=== PATIENT | female | born 1970 | race African-American/Black ===

== ENCOUNTER 2020-09-30 21:05 | Emergency (ER) | payer SELFPAY ==
[~2020-09-30] VITALS: Ht 172.7 cm; Wt 90.7 kg
[2020-09-30] MEDS ORDERED: KETOROLAC TROMETH 60MG/2ML VIAL IM ONE (23:45)
[2020-09-30] MEDS ORDERED: HYDROcodone-ACET 5/325MG TAB PO ONE (23:45)
[2020-10-01] VITALS: BP 140/73
== END 2020-10-01 03:00 | disposition home or self-care (01) ==
LOC: ER 21:09
DX: S32.029A Unspecified fracture of second lumbar vertebra, initial encounter for closed fracture (principal); S32.039A Unspecified fracture of third lumbar vertebra, initial encounter for closed fracture; W01.0XXA Fall on same level from slipping, tripping and stumbling without subsequent striking against object, initial encounter; Y93.89 Activity, other specified; Y92.89 Other specified places as the place of occurrence of the external cause; Y99.8 Other external cause status
CPT/HCPCS: 71045; 72125; 72128; 72131; 96372; 99285; J1885

== ENCOUNTER 2021-07-08 19:27 | Emergency (ER) | payer SELFPAY ==
[~2021-07-08] VITALS: Ht 175.3 cm; Wt 90.7 kg
[2021-07-09 03:25] LABS: Calcium 9.2 mg/dL (8.5-10.1); Potassium 3.8 mmol/L (3.5-5.1)
[2021-07-09 03:27] LABS: BUN/Creatinine Ratio 8.5
[2021-07-09 03:40] LABS: Basophils # (auto) 0.1 10 ^3/uL (0-0.2); Eosinophils # (auto) 0.2 10 ^3/uL (0-0.8); Hemoglobin 11.4 g/dL (12.2-16.2); Mean Corpuscular Hemoglobin 26.2 pg (28.0-32.0); Monocytes # (auto) 0.5 10 ^3/uL (0-1.3); Neutrophils # (auto) 4.5 10 ^3/uL (1.6-8.6); White Blood Cell 7.8 10^3/uL (4.4-10.8)
[2021-07-09 03:42] LABS: Basophils % (auto) 0.7 % (0.0-2.0); Eosinophils % (auto) 3.1 % (0.0-7.0); Hematocrit 35.4 % (36.0-46.0); Lymphocytes # (auto) 2.4 10 ^3/uL (0.4-5.4); Mean Corpuscular Hgb Conc. 32.1 g/dL (32.0-36.0); Mean Corpuscular Volume 81.7 fL (80.0-100.0); Neutrophils % (auto) 58.2 % (37.0-80.0); Red Blood Cells 4.33 10^6/uL (4.0-5.20); Red Cell Distribution Width 15.2 % (11.8-14.3)
[2021-07-09] MEDS ORDERED: IOHEXOL 350 MG/ML 100ML IJ ONE (04:04)
[2021-07-09 04:23] VITALS: BP 119/69
== END 2021-07-09 07:52 | disposition home or self-care (01) ==
LOC: ER 19:29
DX: R07.89 Other chest pain (principal)
CPT/HCPCS: 36415; 71045; 71275; 80048; 83605; 85025; 85379; 87040; 99285; Q9967

== ENCOUNTER 2022-05-06 14:49 | Emergency (ER) | payer SELFPAY ==
[~2022-05-06] VITALS: Ht 172.7 cm; Wt 90.9 kg
[2022-05-06 15:00] VITALS: BP 131/71
[2022-05-06 16:28] LABS: Basophils # (auto) 0.1 10 ^3/uL (0-0.2); Eosinophils # (auto) 0.2 10 ^3/uL (0-0.8); Red Blood Cells 3.98 10^6/uL (4.0-5.20)
[2022-05-06 16:30] LABS: Basophils % (auto) 0.9 % (0.0-2.0); Eosinophils % (auto) 2.1 % (0.0-7.0); Hematocrit 32.2 % (36.0-46.0); Hemoglobin 10.3 g/dL (12.2-16.2); Lymphocytes # (auto) 1.8 10 ^3/uL (0.4-5.4); Lymphocytes % (auto) 21.1 % (10.0-50.0); Mean Corpuscular Hemoglobin 25.9 pg (28.0-32.0); Mean Corpuscular Volume 80.8 fL (80.0-100.0); Monocytes # (auto) 0.6 10 ^3/uL (0-1.3); Monocytes % (auto) 7.2 % (0.0-12.0); Neutrophils % (auto) 68.7 % (37.0-80.0); Red Cell Distribution Width 15.2 % (11.8-14.3); White Blood Cell 8.7 10^3/uL (4.4-10.8)
[2022-05-06 16:42] LABS: INR 1.08 (0.9-1.15); Partial Thromboplastin Time 30.8 sec (24.6-33.4)
[2022-05-06 16:52] LABS: Albumin 3.7 g/dL (3.4-5.0); BUN/Creatinine Ratio 12.6; Calcium 8.9 mg/dL (8.5-10.1); Potassium 3.8 mmol/L (3.5-5.1)
[2022-05-06 16:55] LABS: Bilirubin, Total 0.4 mg/dL (0.2-1.0); Total Protein 7.6 g/dL (6.4-8.2)
[2022-05-06 20:57] LABS: Urine Blood Negative /uL (Negative); Urine Specific Gravity 1.023 (1.001-1.035)
== END 2022-05-06 22:20 | disposition home or self-care (01) ==
LOC: ER 14:49
DX: S39.011A Strain of muscle, fascia and tendon of abdomen, initial encounter (principal); R07.89 Other chest pain; Z98.51 Tubal ligation status; X58.XXXA Exposure to other specified factors, initial encounter; Y93.89 Activity, other specified; Y92.89 Other specified places as the place of occurrence of the external cause; Y99.8 Other external cause status
CPT/HCPCS: 36415; 71045; 80053; 81003; 83880; 84484; 85025; 85379; 85610; 85730; 93005; 93971